=== PATIENT | female | born 1960 | race Caucasian/White ===

== ENCOUNTER 2017-09-30 12:48 | Emergency (ER) | payer BC ==
--- NOTE | 2017-09-30 14:28 | RAD ---
Indication: Right hip pain. 2 views of the right hip and an AP view the pelvis demonstrates calcification along the gluteus medius tendon at the insertion to the greater trochanter. No fracture is noted. Joint spaces well-preserved. IMPRESSION: Calcification along the gluteus medius tendon at the insertion to the greater trochanter consistent with tendinitis. No fracture is noted.
[2017-09-30 15:19] VITALS: BP 186/104
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
== END 2017-09-30 15:16 | disposition home or self-care (01) ==
LOC: ED 12:48
DX: M76.9 Unspecified enthesopathy, lower limb, excluding foot (principal); I10 Essential (primary) hypertension
CPT/HCPCS: 99282